=== PATIENT | male | born 1945 | race Caucasian/White ===

== ENCOUNTER 2017-06-11 10:43 | Emergency (ER) | payer MEDICARE, BC, SELFPAY ==
[2017-06-11 10:45] VITALS: BP 103/80; PULSE 70; RESP 21; O2SAT 98; BMI 26.1
--- NOTE | 2017-06-11 10:52 | EKG12_ITS ---
Test Reason : Blood Pressure : / mmHG Vent. Rate : 071 BPM Atrial Rate : 071 BPM P-R Int : 190 ms QRS Dur : 136 ms QT Int : 466 ms P-R-T Axes : 035 026 046 degrees QTc Int : 506 ms Normal sinus rhythm Right bundle branch block Abnormal ECG Confirmed by KRISHNA BREWSTER ([id number]), newspaper or periodical editor SEEMA KEARNS ([id number]) on 06/14/2017 2:42:59 PM Referred By: EDIN Confirmed By:KRISHNA BREWSTER
--- NOTE | 2017-06-11 10:55 | EKG12_ITS ---
Test Reason : Blood Pressure : / mmHG Vent. Rate : 071 BPM Atrial Rate : 071 BPM P-R Int : 182 ms QRS Dur : 134 ms QT Int : 454 ms P-R-T Axes : 043 040 042 degrees QTc Int : 493 ms Normal sinus rhythm Right bundle branch block Abnormal ECG Confirmed by KRISHNA BREWSTER ([id number]), fan mail editor SEEMA KEARNS ([id number]) on 06/14/2017 2:40:10 PM Referred By: EDIN Confirmed By:KRISHNA BREWSTER
--- NOTE | 2017-06-11 10:58 | ED.DCSUM_ITS ---
- ER Visit Summary Date of Service: 06/11/17 Chief Complaint: Syncope History of Present Illness: The patient is a 72 M who presents after syncopal episode. He was visiting a friend up in [place] when he started felt hot and clammy. He then remembers waking up on the floor. He states he felt good this morning when he woke up. He currently has nausea and shortness of breath. He denies any chest pain. No history of OR in the past. He does have a history of atrial fibrillation with an ablation done a few years ago. Physical Examination: Vital signs reviewed. HEENT exam unremarkable. Heart is regular rate and rhythm without murmurs. Lungs are clear to auscultation. Abdomen is soft and nontender. Extremities reveal no edema. Peripheral pulses are equal. Skin exam shows that he has diaphoretic. Neurologic exam normal. Test Results: EKG is normal sinus rhythm with a rate of 71. Nonspecific ST-T wave changes noted. Labs are unremarkable except for creatinine 1.32 Emergency Department Course and Treatment: The patient had labs and EKG and chest x-ray all of which did not show any acute findings. After all this was completed, a bystander then came to the room and said the patient hit his head during the syncopal episode. At that time a CAT scan of his head and cervical spine were obtained. These both show no acute findings. 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 Patient was discussed with the transfer center and the patient will be transferred to the CD[facility] Treatment Plan: [] Disposition: Transfer Impression: Syncope This note was generated with [employer] dictation software. It may contain incorrect words, spelling, and punctuation that were not noted in review of the chart prior to signing ED Disposition - Plan for ED Patient: Chief Complaint: Syncope Referrals: Bam García MD [Primary Care Provider] -
[2017-06-11 10:59] VITALS: O2SAT 99
--- NOTE | 2017-06-11 11:01 | RAD_ITS ---
STUDY: X-RAY CHEST REASON FOR EXAM: Male, 72 years old. Near syncopal episodes and dizziness. TECHNIQUE: Single AP portable view of the chest. COMPARISON: None. FINDINGS: EKG electrodes are seen. The lungs are clear and expanded. Scattered calcified granulomas. There is no demonstrated pleural abnormality. Normal size heart. Normal mediastinum and cristobal. Normal visualized pulmonary arteries. There is atherosclerotic calcification of the aortic arch with tortuosity. Normal visualized thoracic spine. Normal visualized ribs, clavicles, and shoulders. There is no demonstrated abnormality of the visualized soft tissue structures of the upper abdomen. RAD/Chest 1 View (Portable) IMPRESSION: No acute abnormality is seen. Electronically Signed: Eliazar Lowery MD at 11:13 EDT Tel [phone], Service support ,
[2017-06-11 11:03] LABS: Absolute Lymphocyte Count 2.14 X10^3/ul (0.83-4.51); Absolute Neutrophil Count 3.3 X10^3/uL (2.0-7.7); Basophil# 0.02 X10^3/uL; Basophil% 0.3 % (0-1); Eosinophil# 0.08 X10^3/uL; Eosinophils% 1.3 % (0-5); Hematocrit 44.9 % (40-54); Hemoglobin 14.9 g/dl (13.0-16.5); Lymphocyte # 2.14 X10^3/ul (4.0); Mean Corp Hgb Conc 33.2 g/gl (32-36); Mean Corpuscular Hgb 28.9 pg (27.0-32.0); Mean Corpuscular Volume 87.2 fL (80-94); Mean Platelet Vol. 9.5 fl (6.2-12.0); Monocyte# 0.55 X10^3/uL; Neutrophil # 3.29 X10^3/uL (2.7-7.7); Neutrophil % 53.9 % (47-70); Platelet Count 198 K/mm3 (150-450); RBC Distribution Width CV 14.2 % (11.6-14.6); Red Blood Count 5.15 M/mm3 (4.6-6.2); White Blood Count 6.1 K/mm3 (4.4-11.0)
[2017-06-11 11:04] LABS: POSITIVE COUNT NO; POSITIVE DIFFERENTIAL NO; POSITIVE MORPHOLOGY NO
[2017-06-11 11:21] LABS: Anion Gap 6 (5-15); BUN 26 mg/dL (7-18); BUN/Creat Ratio 19.7 RATIO (10-20); Calcium,Total 9.2 mg/dL (8.5-10.1); Chloride 107 mmol/L (98-107); Creatinine, Serum 1.32 mg/dL (0.70-1.30); EST Glomerular Filtration Rate 57 mL/min (>60); Est Glom Filt Rate - Afr Amer 69 mL/min (>60); Estimated Creatinine Clearance 57.15 ml/min; Glucose 129 mg/dL (74-106); Potassium 3.9 mmol/L (3.5-5.1); Sodium Level 136 mmol/L (136-145)
[2017-06-11] MEDS: Ondansetron 4 MG/2 ML Vial IV (11:21)
[2017-06-11] MEDS: Aspirin 81 MG TAB.CHEW 324 MG PO (11:21)
[2017-06-11 11:23] VITALS: BP 113/73; PULSE 61; RESP 18; O2SAT 100
--- NOTE | 2017-06-11 12:07 | CT_ITS ---
STUDY: CT CERVICAL SPINE WITHOUT CONTRAST REASON FOR EXAM: Male, 72 years old. Syncopal episode. RADIATION DOSAGE (If Supplied By Facility): CTDIvol = ( 22.67 ) mGy, DLP = ( 445.78 ) mGycm TECHNIQUE: High resolution transaxial imaging was performed without contrast material. Sagittal and coronal images were reconstructed. Individualized dose optimization techniques were used for this CT. COMPARISON: None FINDINGS: Normal craniovertebral junction. There are degenerative changes of the anterior atlantoaxial articulation. Normal odontoid process. Normal cervical lordosis. Normal vertebral bodies and posterior osseous elements. C2-3: Normal endplates. Normal disc height and morphology. Normal central canal and intervertebral neuroforamina. C3-4: Moderate degree of disc space narrowing. Uncovertebral arthrosis. C4-5: Mild degree of disc space narrowing. Uncovertebral arthrosis. Facet joint osteoarthritis. C5-6: Mild degree of disc space narrowing. Uncovertebral arthrosis. Facet joint osteoarthritis. No significant stenosis is seen. C6-7: Facet joint osteoarthritis. Marked degree of disc space narrowing and spondylosis. C7-T1: Normal endplates. Normal disc height and morphology. Normal central canal and intervertebral neuroforamina. Normal visualized soft tissue structures. CT/Spine Cervical without Contras IMPRESSION: Multilevel degenerative changes, as described above. Electronically Signed: Eliazar Lowery MD at 13:27 EDT Tel [phone], Service support ,
--- NOTE | 2017-06-11 12:07 | CT_ITS ---
STUDY: CT BRAIN WITHOUT CONTRAST REASON FOR EXAM: Male, 72 years old. Syncopal episode. RADIATION DOSAGE (If Supplied By Facility): CTDIvol = ( 44.99 ) mGy, DLP = ( 829.85 ) mGycm TECHNIQUE: Transaxial CT imaging of the brain was performed without administration of intravenous contrast material. Individualized dose optimization techniques were used for this CT. COMPARISON: None. FINDINGS: Normal soft tissue structures. Normal calvarium. There is mild cerebral atrophy with widening of the extra-axial spaces and ventricular dilatation. Normal white matter tracts of the cerebral hemispheres. Normal basal ganglia and thalami. Normal brainstem. There is moderate cerebellar atrophy. There is prominence of the cisterna magna in the posterior fossa. There is no intracranial hemorrhage. There are no findings of an acute ischemic infarction. Atherosclerotic calcification of the cavernous portions of the internal carotid arteries bilaterally. Mucosal retention cyst and/or polyp in the inferior medial portion of the right maxillary sinus. CT/Brain/Head without Contrast IMPRESSION: Chronic involutional changes of the brain. No acute abnormality is seen. Electronically Signed: Eliazar Lowery MD at 13:25 EDT Tel [phone], Service support ,
[2017-06-11 12:56] VITALS: BP 127/74; PULSE 67; RESP 10; O2SAT 98
[2017-06-11] MEDS: Acetaminophen 500 MG Tablet 1000 MG PO (12:58)
[2017-06-11 13:02] VITALS: BP 144/81; PULSE 71; RESP 16; O2SAT 97
[2017-06-11 13:58] VITALS: BP 125/73; PULSE 73; RESP 13; O2SAT 97
[2017-06-12 09:50] LABS: Bedside Glucose 115 mg/dL (70-110)
== END 2017-06-11 14:15 | disposition short-term general hospital (02) ==
PROVIDERS: Emergency Provider Emergency Medicine; Family Provider Family Medicine; PCP Family Medicine
DX: R55 Syncope and collapse (principal); R06.02 Shortness of breath; R11.0 Nausea; I48.91 Unspecified atrial fibrillation; Z79.01 Long term (current) use of anticoagulants; Z79.899 Other long term (current) drug therapy
CPT/HCPCS: 70450; 71045; 72125; 80048; 82962; 84484; 85025; 93005; 96374; 99285; J7030; A4216; J2405

== ENCOUNTER 2020-06-01 10:45 | Outpatient (RCR) | payer MEDICARE, BC, SELFPAY ==
[2020-06-01] MEDS: COVID-19 VACC, MRNA(PFIZER)/PF 30 MCG/0.3 ML SYRINGE IM (10:33)
[2020-06-22] MEDS: COVID-19 VACC, MRNA(PFIZER)/PF 30 MCG/0.3 ML SYRINGE IM (10:33)
== END 2020-08-31 23:59 ==
LOC: IMMUN 10:45
PROVIDERS: PCP Family Medicine; Visit Provider Family Medicine
DX: Z23 Encounter for immunization (principal)
CPT/HCPCS: 0001A; 0002A; 91300